=== PATIENT | female | born 1970 ===

== ENCOUNTER 2021-09-18 10:09 | Outpatient (CLI) | payer OTHER, SELFPAY ==
--- NOTE | 2021-09-18 10:00 | CRLHL7_ITS ---
For Patients: As a result of the Century Cures Act, medical imaging exams and procedure reports are released immediately into your electronic medical record. You may view this report before your referring provider. If you have questions, please contact your health care provider. Indication: Colon cancer. Technique: Noncontrast sagittal T1, axial FLAIR, T2, diffusion, post contrast T1 weighted sequences are provided. No comparisons. Findings: The ventricles, sulci and gyri are normal size, shape and contour for age. The midline structures are centrally located with no evidence of shift. There are no suspicious intra or extra-axial fluid collections. No region of restricted diffusion or suspicious regions of abnormal parenchymal enhancement. Expected flow voids in the cavernous carotids and basilar artery. Mild opacification of the right mastoid air cells likely representing presence of benign inflammatory fluid. Impression: 1. No radiographic evidence of acute intracranial abnormalities. Dictated by Dalton Hernandez MD @ 09/18/2021 1:43:34 PM (Electronically Signed)
== END 2021-09-18 10:10 | disposition home or self-care (01) ==
LOC: MRI 10:14
PROVIDERS: Visit Provider Radiology Radiation Oncology
DX: C18.9 Malignant neoplasm of colon, unspecified (principal)
CPT/HCPCS: 70553; A9575